=== PATIENT | male | born 1960 | race Caucasian/White ===

== ENCOUNTER → 2016-09-24 | Outpatient (CLI) | payer BC, MEDICARE ==
[~2016-09-24] MED LIST: ALLERGY RELIEF10 M3 PO; ALLOPURINOL300 MG PO; ASPIRIN81 MG PO; COREG 12.5MG12.5 MG PO; ISOSORBIDE MONO60 MG PO; KLONOPIN TAB 00.5 MG PO; KLOR-CON M1010 MEQ PO; LASIX40 MG PO; LEVOTHYROXINE150 MCG PO; LOVASTATIN40 MG PO; PRILOSEC OTC20 MG PO; SINGULAIR10 MG PO; TRAZODONE HCL50 MG PO; ZANAFLEX2 MG PO; ZANTAC300 MG PO; ZYLOPRIM 100 M100 MG PO
[2016-09-24 09:59] LABS: HEMOGLOBIN 14.5 gm/dl (14.0-17.5); RED BLOOD COUNT 4.81 M/UL (4.20-5.50); WHITE BLOOD COUNT 7.1 K/UL (4.5-11.0)
[2016-09-24 10:27] LABS: BUN/CREATININE RATIO 12 (0-10)
== END ==
LOC: LAB 08:17
PROVIDERS: Nurse Practitioner Family
DX: J01.00 Acute maxillary sinusitis, unspecified (principal); E55.9 Vitamin D deficiency, unspecified; E03.9 Hypothyroidism, unspecified; E78.5 Hyperlipidemia, unspecified
CPT/HCPCS: 36415; 80053; 80061; 84439; 84443; 85025

== ENCOUNTER → 2016-11-20 | Outpatient (CLI) | payer BC, MEDICARE | LOC: EXRD 09:08 | DX: M54.5 Low back pain (principal) | CPT/HCPCS: 72100 ==

== ENCOUNTER 2020-05-18 | Outpatient (CLI) | payer MEDICARE, OTHER ==
[~2020-05-18] MED LIST changes: -LEVOTHYROXINE150 MCG PO; +LEVOTHYROXINE200 MC2 PO; +NEXIUM40 MG PO; +VITAMIN D250000 UNIT PO; +Voltaren Gel 1 % TOP
[2020-05-18] MEDS ORDERED: MAGNESIUM250 MG PO (10:46)
[2020-05-18] MEDS ORDERED: FLOMAX 0.4 MG0.4 MG PO (10:46)
[2020-05-18] MEDS ORDERED: VITAMIN D325 MCG PO (10:47)
[2020-05-18] MEDS ORDERED: ATORVASTATIN CA80 MG PO (10:47)
[2020-05-18] MEDS ORDERED: RANOLAZINE ER500 MG PO (10:48)
[2020-05-18] MEDS ORDERED: NORCO 7.5-3251 EACH PO (10:48)
--- NOTE | 2020-05-18 18:28 | NUR ---
RIGHT GROIN CATH SITE CDI. NO SIGNS OF BLEEDING, SWELLING, DISCOMFORT OR HEMATOMA. PT AND PT INSTRUCTED ON SITE CARE AND S/S TO LOOK FOR. BOTH STATED AN UNDERSTANDING OF THE EDUCATION THAT WAS RECEIVED. ADELA
== END 2020-05-18 19:26 | disposition home or self-care (01) ==
DX: I25.118 Atherosclerotic heart disease of native coronary artery with other forms of angina pectoris (principal); I50.9 Heart failure, unspecified; I11.0 Hypertensive heart disease with heart failure; E78.5 Hyperlipidemia, unspecified; Z95.1 Presence of aortocoronary bypass graft; E03.9 Hypothyroidism, unspecified; F41.9 Anxiety disorder, unspecified; F32.9 Major depressive disorder, single episode, unspecified; K21.9 Gastro-esophageal reflux disease without esophagitis; Z79.82 Long term (current) use of aspirin; Z79.899 Other long term (current) drug therapy
CPT/HCPCS: 99152; C1769; J1644; J2250; J3010; J7030; Q9967

== ENCOUNTER → 2020-06-26 | Outpatient (CLI) | payer MEDICARE, OTHER ==
[~2020-06-26] MED LIST changes: +ATORVASTATIN CA80 MG PO; +BUDESONIDE0.25 MG/2 INH; +CEFPODOXIME PR200 MG PO; +DEXAMETHASONE2 MG PO; +FLOMAX 0.4 MG0.4 MG PO; +IPRAT-ALBUT 0.5-3 ML NEB; +MAGNESIUM250 MG PO; +NORCO 7.5-3251 EACH PO; +RANOLAZINE ER500 MG PO; +VIBRAMYCIN100 MG PO; +VITAMIN D325 MCG PO
== END ==
LOC: LAB 14:45
DX: N40.1 Benign prostatic hyperplasia with lower urinary tract symptoms (principal); R33.8 Other retention of urine
CPT/HCPCS: 36415; 84153

== ENCOUNTER → 2020-06-28 | Outpatient (CLI) | payer MEDICARE | LOC: KOH-I 08:00 | DX: Z12.2 Encounter for screening for malignant neoplasm of respiratory organs (principal); Z87.891 Personal history of nicotine dependence; R91.8 Other nonspecific abnormal finding of lung field | CPT/HCPCS: 71271 ==

== ENCOUNTER 2020-07-12 11:10 | Inpatient (IN) | payer MEDICARE ==
[~2020-07-12] VITALS: Ht 177.8 cm; Wt 127.9 kg
[~2020-07-12 11:10] MED LIST changes: -BUDESONIDE0.25 MG/2 INH; -CEFPODOXIME PR200 MG PO; -DEXAMETHASONE2 MG PO; -IPRAT-ALBUT 0.5-3 ML NEB; -VIBRAMYCIN100 MG PO
[2020-07-12 13:09] LABS: HEMOGLOBIN 15.4 gm/dl (14.0-17.5); RED BLOOD COUNT 4.9 M/UL (4.20-5.50); WHITE BLOOD COUNT 8.6 K/UL (4.5-11.0)
[2020-07-12 13:32] LABS: BUN/CREATININE RATIO 15 (0-10)
[2020-07-13 04:45] LABS: BUN/CREATININE RATIO 16 (0-10)
[2020-07-14 07:31] LABS: BUN/CREATININE RATIO 23 (0-10)
[2020-07-15 03:58] LABS: BUN/CREATININE RATIO 24 (0-10)
[2020-07-16 04:40] LABS: BUN/CREATININE RATIO 23 (0-10)
[2020-07-17 02:59] LABS: BUN/CREATININE RATIO 22 (0-10)
[2020-07-18 06:33] LABS: BUN/CREATININE RATIO 24 (0-10)
[2020-07-18 12:42] LABS: HEMOGLOBIN 15.6 gm/dl (14.0-17.5); RED BLOOD COUNT 4.99 M/UL (4.20-5.50); WHITE BLOOD COUNT 13.7 K/UL (4.5-11.0)
[2020-07-19 06:21] LABS: HEMOGLOBIN 14.7 gm/dl (14.0-17.5); RED BLOOD COUNT 4.75 M/UL (4.20-5.50); WHITE BLOOD COUNT 11.3 K/UL (4.5-11.0)
[2020-07-19 06:51] LABS: BUN/CREATININE RATIO 27 (0-10)
[2020-07-20 07:07] LABS: HEMOGLOBIN 15.8 gm/dl (14.0-17.5)
[2020-07-20 07:10] LABS: RED BLOOD COUNT 5.01 M/UL (4.20-5.50); WHITE BLOOD COUNT 12.9 K/UL (4.5-11.0)
[2020-07-20 07:31] LABS: BUN/CREATININE RATIO 29 (0-10)
[2020-07-20] MEDS ORDERED: IPRAT-ALBUT 0.5-3 ML NEB (10:00)
[2020-07-20] MEDS ORDERED: LASIX40 MG PO (10:00)
[2020-07-20] MEDS ORDERED: DEXAMETHASONE2 MG PO (10:09)
[2020-07-20] MEDS ORDERED: BUDESONIDE0.25 MG/2 INH (10:09)
--- NOTE | 2020-07-20 11:31 | NUR ---
PER NURSING, THE PATIENT'S SATS DOWN TO 88% ON ROOM AIR
== END 2020-07-20 15:33 | disposition home health service (06) | DRG 177 ==
LOC: ER1 11:10 → CDU 16:25 → MED SURG 4 16:25
PROVIDERS: Internal Medicine; Physician Assistant Medical; ADMIT Internal Medicine
PROC: 8E0ZXY6 Isolation (ICD-10-PCS; 2020-07-12)
PROC: XW033E5 Introduction of Remdesivir Anti-infective into Peripheral Vein, Percutaneous Approach, New Technology Group 5 (ICD-10-PCS; 2020-07-12)
PROC: XW13325 Transfusion of Convalescent Plasma (Nonautologous) into Peripheral Vein, Percutaneous Approach, New Technology Group 5 (ICD-10-PCS; 2020-07-14)
PROC: B24BZZZ Ultrasonography of Heart with Aorta (ICD-10-PCS; principal; 2020-07-20)
DX: U07.1 COVID-19 (principal); J12.82 Pneumonia due to coronavirus disease 2019; J96.01 Acute respiratory failure with hypoxia; Z68.41 Body mass index [BMI] 40.0-44.9, adult; K21.9 Gastro-esophageal reflux disease without esophagitis; J30.2 Other seasonal allergic rhinitis; R04.0 Epistaxis; J64 Unspecified pneumoconiosis; I25.10 Atherosclerotic heart disease of native coronary artery without angina pectoris; I10 Essential (primary) hypertension; E78.5 Hyperlipidemia, unspecified; J44.9 Chronic obstructive pulmonary disease, unspecified; E66.01 Morbid (severe) obesity due to excess calories; Z79.82 Long term (current) use of aspirin; Z79.890 Hormone replacement therapy; Z95.1 Presence of aortocoronary bypass graft; Z79.899 Other long term (current) drug therapy; Z87.81 Personal history of (healed) traumatic fracture; Z87.891 Personal history of nicotine dependence
CPT/HCPCS: ECHO; 36415; 36600; 71045; 80053; 81001; 82803; 83605; 83735; 83880; 84484; 85025; 85379; 85610; 86140; 86710; 86900; 86901; 86927; 87040; 93005; 93306; 94760; 96365; 96366; 96372; 96375; 96376; 97116-GP-CQ; 97162; 99285; J1100; J1650; J1940; J1953; J2405; J7030; M0239; U0002

== ENCOUNTER 2020-07-26 15:01 | Emergency (ER) | payer MEDICARE ==
[~2020-07-26 15:01] MED LIST changes: +BUDESONIDE0.25 MG/2 INH; +DEXAMETHASONE2 MG PO; +IPRAT-ALBUT 0.5-3 ML NEB
[2020-07-26 16:39] LABS: HEMOGLOBIN 14.7 gm/dl (14.0-17.5); RED BLOOD COUNT 4.6 M/UL (4.20-5.50); WHITE BLOOD COUNT 16.8 K/UL (4.5-11.0)
[2020-07-26 17:05] LABS: BUN/CREATININE RATIO 19 (0-10)
[2020-07-26] MEDS ORDERED: VIBRAMYCIN100 MG PO (17:42)
[2020-07-26] MEDS ORDERED: CEFPODOXIME PR200 MG PO (17:43)
== END 2020-07-26 19:22 | disposition home or self-care (01) ==
LOC: ER1 15:01
PROVIDERS: Student in an Organized Health Care Education/Training Program
DX: U07.1 COVID-19 (principal); J12.82 Pneumonia due to coronavirus disease 2019; I50.9 Heart failure, unspecified; Z87.891 Personal history of nicotine dependence; Z88.2 Allergy status to sulfonamides; Z95.1 Presence of aortocoronary bypass graft
CPT/HCPCS: 36415; 71045; 80053; 82550; 82553; 83874; 84484; 85025; 93005; 99284

== ENCOUNTER 2020-08-01 06:53 | Emergency (ER) | payer MEDICARE ==
[~2020-08-01 06:53] MED LIST changes: +CEFPODOXIME PR200 MG PO; +VIBRAMYCIN100 MG PO
== END 2020-08-01 10:32 | disposition home or self-care (01) ==
LOC: ER1 06:53
DX: U07.1 COVID-19 (principal)
CPT/HCPCS: 99284

== ENCOUNTER → 2020-08-07 | Outpatient (CLI) | payer MEDICARE | LOC: RAD 12:32 | DX: Z09 Encounter for follow-up examination after completed treatment for conditions other than malignant neoplasm (principal); Z86.16 Personal history of COVID-19; R91.8 Other nonspecific abnormal finding of lung field | CPT/HCPCS: 71046 ==

== ENCOUNTER 2020-08-22 23:49 | Emergency (ER) | payer MEDICARE | END 2020-08-23 01:19 | disposition home or self-care (01) | LOC: ER1 23:49 | DX: R04.0 Epistaxis (principal); J44.9 Chronic obstructive pulmonary disease, unspecified; I10 Essential (primary) hypertension; Z95.1 Presence of aortocoronary bypass graft; Z88.2 Allergy status to sulfonamides | CPT/HCPCS: 30901; 94760; 99283 ==

== ENCOUNTER → 2020-10-09 | Outpatient (CLI) | payer MEDICARE | LOC: EXRD 15:13 | DX: M54.5 Low back pain (principal); M25.552 Pain in left hip; S32.010A Wedge compression fracture of first lumbar vertebra, initial encounter for closed fracture; M47.816 Spondylosis without myelopathy or radiculopathy, lumbar region; M16.12 Unilateral primary osteoarthritis, left hip; X58.XXXA Exposure to other specified factors, initial encounter | CPT/HCPCS: 72100; 73502 ==

== ENCOUNTER → 2021-09-19 | Outpatient (CLI) | payer MEDICARE | LOC: KOH-I 10:31 | DX: Z87.891 Personal history of nicotine dependence (principal) | CPT/HCPCS: 71271 ==

== ENCOUNTER → 2021-10-09 | Day surgery (SDC) | payer MEDICARE ==
[~2021-10-09] VITALS: Ht 177.8 cm; Wt 122.5 kg
[~2021-10-09] MED LIST changes: +LASIX80 MG PO; +VIT B12
== END | disposition home or self-care (01) ==
LOC: OR 07:36
PROVIDERS: Internal Medicine Gastroenterology
PROC: 0DBM8ZZ Excision of Descending Colon, Via Natural or Artificial Opening Endoscopic (ICD-10-PCS; principal; 2021-10-09 10:30)
DX: Z12.11 Encounter for screening for malignant neoplasm of colon (principal); Z20.822 Contact with and (suspected) exposure to COVID-19; K57.30 Diverticulosis of large intestine without perforation or abscess without bleeding; K64.1 Second degree hemorrhoids; K44.9 Diaphragmatic hernia without obstruction or gangrene
CPT/HCPCS: J2001; J2704

== ENCOUNTER → 2021-10-11 | Outpatient (CLI) | payer MEDICARE | LOC: KOH-I 10:57 | DX: J69.0 Pneumonitis due to inhalation of food and vomit (principal) | CPT/HCPCS: 71046 ==

== ENCOUNTER → 2021-11-20 | Outpatient (CLI) | payer MEDICARE | LOC: RAD 08:54 | DX: T17.928A Food in respiratory tract, part unspecified causing other injury, initial encounter (principal); R05.9 Cough, unspecified | CPT/HCPCS: 74230; 92611-GN ==

== ENCOUNTER → 2022-01-30 | Outpatient (CLI) | payer MEDICARE | LOC: EXRD 13:29 | DX: M25.562 Pain in left knee (principal) | CPT/HCPCS: 73564 ==

== ENCOUNTER → 2022-02-25 | Outpatient (CLI) | payer MEDICARE | LOC: US 15:00 | DX: I99.9 Unspecified disorder of circulatory system (principal) | CPT/HCPCS: 93922; 93925 ==